=== PATIENT | female | born 1975 | race Caucasian/White ===

== ENCOUNTER 2016-11-02 14:07 | Emergency (ER) | payer BC, OTHER ==
--- NOTE | 2016-11-02 14:40 | UC ---
Complaint Female HPI - HPI Summary HPI Summary: 41 YEAR OLD MALE PRESENTS WITH COMPLAINS OF URINARY FREQUENCY AND URGENCY. - History Of Current Complaint Stated Complaint: URINARY Time Seen by Provider: 11/02/16 14:40 Hx Obtained From: Patient Onset/Duration: Sudden Onset Timing: Constant Severity Initially: Moderate Severity Currently: Moderate Pain Scale Used: 0-10 Numeric - 5 Character: Sharp Aggravating Factor(s): Movement Associated Signs And Symptoms: Positive: Back Pain, Nausea, Vomiting(# Of Episodes =) - Allergies/Home Medications Allergies/Adverse Reactions: Allergies Allergy/AdvReac Type Severity Reaction Status Date / Time No Known Allergies Allergy Verified 11/02/16 14:47 Home Medications: Home Medications Ibuprofen TAB* [Advil TAB*] 800 mg PO Q6H PRN 11/02/16 [History Confirmed ] Review of Systems Constitutional: Negative Skin: Negative Eyes: Negative ENT: Negative Respiratory: Negative Cardiovascular: Negative Genitourinary: Frequency, Urgency Motor: Negative Neurovascular: Negative Musculoskeletal: Negative Neurological: Negative Psychological: Negative All Other Systems Reviewed And Are Negative: Yes Physical Exam Triage Information Reviewed: Yes Eye Exam: Normal ENT Exam: Normal Dental Exam: Normal Neck exam: Normal Neck: Positive: 1 Respiratory Exam: Normal Cardiovascular Exam: Normal Abdominal Exam: Normal Musculoskeletal Exam: Normal Neurological Exam: Normal Psychological Exam: Normal Skin Exam: Normal Complaint Female Dx - Differential Dx/Diagnosis Provider Diagnoses: URINARY FREQUENCY. URINARY URGENCY Discharge - Discharge Plan Condition: Stable Disposition: HOME Prescriptions: Nitrofurantoin Monohyd Macro [Macrobid] 100 mg PO BID #14 cap Patient Education Materials: Urinary Tract Infection in Women (ED) Referrals: Ryley Del Valle MD [Primary Care Provider] -
[2016-11-02 14:47] VITALS: BP 124/76
== END 2016-11-02 15:16 | disposition home or self-care (01) ==
LOC: UCCORT 14:07
DX: R35.0 Frequency of micturition (principal); R39.15 Urgency of urination; Z32.02 Encounter for pregnancy test, result negative
CPT/HCPCS: 81003; 84702; 87077; 87086; 87186; 99202; G0463

== ENCOUNTER 2017-02-02 14:08 | Emergency (ER) | payer OTHER ==
--- NOTE | 2017-02-02 15:09 | UC ---
Skin Complaint HPI - HPI Summary HPI Summary: Pt presents with multiple concerns. 1) Left ear pain. She has a history of cerumen impaction and thinks this may be the cause. Pain started 2 days ago and feels tender around her TMJ as well. No decreased hearing or tinnitus. 2) Tick on left side. first noticed early this morning. Is unsure how long it has been attached. A family member tried to remove the tick from the skin, but a leg remained stuck within. Denies fever, chills, ST, cough, SOB, chest pain, abdominal pain, N/V/D/C - History of Current Complaint Time Seen by Provider: 02/02/17 15:09 Stated Complaint: TICK,LEFT EAR COMPLAINT Hx Obtained From: Patient Hx Last Menstrual Period: ~ 1 WK AGO Skin Exposure Onset/Duration: Minutes Ago Timing: Constant - Allergy/Home Medications Allergies/Adverse Reactions: Allergies Allergy/AdvReac Type Severity Reaction Status Date / Time No Known Allergies Allergy Verified 02/02/17 15:04 Home Medications: Home Medications Buprenorphine/Naloxone SL TAB* [Suboxone 8-2 mg SL TAB*] 1 tab.sl SL BID [History Confirmed 02/02/17] Copper (Iud) [Paragard Intrauterine Cable Driller] 02/02/17 [History] Review of Systems Constitutional: Negative Skin: Other - Tick bite left side ribs Eyes: Negative ENT: Ear Ache Respiratory: Negative Cardiovascular: Negative Gastrointestinal: Negative Neurovascular: Negative Musculoskeletal: Negative Neurological: Negative Psychological: Negative All Other Systems Reviewed And Are Negative: Yes PMH/Surg Hx/FS Hx/Imm Hx Previously Healthy: Yes - Surgical History Surgical History: Yes Surgery Procedure, Year, and Place: C-SECT. LEEP PROCEED-2014 - Social History Alcohol Use: Occasionally Substance Use Type: None Smoking Status (MU): Current Every Day Smoker Type: Cigarettes Amount Used/How Often: 1/2 PPD Length of Time of Smoking/Using Tobacco: ON AND OFF FOR 20 YRS. Have You Smoked in the Last Year: Yes Cessation Counseling: Counseled 3+Min - 10 Min Physical Exam Triage Information Reviewed: Yes Appearance: Well-Appearing, Well-Nourished Vital Signs Reviewed: Yes Eyes: Positive: Conjunctiva Clear. Negative: Conjunctiva Inflamed, Discharge ENT: Positive: Hearing grossly normal, Pharynx normal, Uvula midline, Other - Left TM occluded by mildly yellow discharge. Ear canal is erythe. Negative: Pharyngeal erythema, Nasal congestion - Left TM occluded by mildly yellow discharge. Ear canal is erythematous., Nasal drainage, TM bulging, TM dull, TM red, Tonsillar swelling, Tonsillar exudate, Sinus tenderness Neck: Positive: Supple, Nontender, No Lymphadenopathy Respiratory: Positive: Chest non-tender, Lungs clear, Normal breath sounds, No respiratory distress, No accessory muscle use Cardiovascular: Positive: RRR, No Murmur, Pulses Normal Neurological: Positive: Alert, Muscle Tone Normal Psychological: Positive: Age Appropriate Behavior Skin: Positive: Other - There is approx 4mm diameter area of erythema with central black dot on the left midaxillary line. Consistent with recent tick bite. Appears to still have a leg of the tick embedded within the skin. There is no discharge, edema, or streaking. Course/Dx - Course Course Of Treatment: Left otitis externa - Ciprofloxacin otic. Tick bite left side - unsure how long it had been attached. Elected for doxy 200mg today. - Differential Diagnoses - Skin Complaint Differential Diagnoses: Foreign Body, Local Allergic Reaction, Tick Born Illness - Diagnoses Provider Diagnoses: Tick bite left side. Otitis externa Discharge - Discharge Plan Condition: Stable Disposition: HOME Prescriptions: Ciprofloxacin HCl (Otic) [Ciprofloxacin 0.2% EAR DROPS] 0.25 ml LEFT EAR BID #1 bottle Ibuprofen [Ibuprofen 200 MG] 800 mg PO Q6HR PRN #90 cap PRN Reason: Pain Patient Education Materials: Lyme Disease (ED), Otitis Externa (ED), Tick Bite (ED) Referrals: Ryley Del Valle MD [Primary Care Provider] - Additional Instructions: If you develop a fever, SOB, chest pain, new or worsening symptoms - please call your PCP or go to the ED. Monitor for signs and symptoms of lyme disease, such as a bulls eye rash, headache, neck pain, fatigue, joint pain or swelling.
[2017-02-02 15:14] VITALS: BP 128/80
[2017-02-02] MEDS ORDERED: DOXYcycline CAP(*) 100 MG PO ONE (15:31)
== END 2017-02-02 15:42 | disposition home or self-care (01) ==
LOC: UCCORT 14:08
DX: S20.372A Other superficial bite of left front wall of thorax, initial encounter (principal); W57.XXXA Bitten or stung by nonvenomous insect and other nonvenomous arthropods, initial encounter; Y92.9 Unspecified place or not applicable; H60.92 Unspecified otitis externa, left ear; F17.210 Nicotine dependence, cigarettes, uncomplicated
CPT/HCPCS: 99212; A9270-GY; G0463

== ENCOUNTER 2018-02-15 15:00 | Emergency (ER) | payer OTHER ==
[2018-02-15 15:21] VITALS: BP 114/81
--- NOTE | 2018-02-15 15:44 | ED ---
GI/ HPI - HPI Summary HPI Summary: 42 yr old female with the complaint of Nausea, vomiting, and diarrhea. Onset of symptoms last night with diarrhea, and she has since vomited four times since this morning. She still has nausea. She reports that her stomach remains upset. Her daughter is here with her and has been ill with NVD as well. The patient denies fever, chills. She is asking for Zofran and a work note. She denies urinary symptoms. Prior surgery includes a c section. - History of Current Complaint Chief Complaint: UCGI Time Seen by Provider: 02/15/18 15:32 Stated Complaint: NAUSEA,VOMITING Hx Last Menstrual Period: 01/30/18 Pain Intensity: 0 - Allergy/Home Medications Allergies/Adverse Reactions: Allergies Allergy/AdvReac Type Severity Reaction Status Date / Time No Known Allergies Allergy Verified 02/15/18 15:21 PMH/Surg Hx/FS Hx/Imm Hx - Surgical History Surgery Procedure, Year, and Place: C-SECT. LEE PROCEED-2014 Infectious Disease History: No Infectious Disease History: Denies: Traveled Outside the [place] in Last 30 Days - Family History Known Family History: Positive: Other - gastroenteritis - Social History Occupation: Employed Full-time Alcohol Use: Occasionally Substance Use Type: Reports: None Substance Use Comment - Amount & Last Used: SUBOXONE FOR PRESCRIPTION PAIN MED ADDICTION Smoking Status (MU): Current Every Day Smoker Type: Cigarettes Amount Used/How Often: 1/2 PPD Length of Time of Smoking/Using Tobacco: ON AND OFF FOR 20 YRS. Have You Smoked in the Last Year: Yes Review of Systems Constitutional: Negative Positive: Vomiting, Diarrhea, Nausea All Other Systems Reviewed And Are Negative: Yes Physical Exam Triage Information Reviewed: Yes Vital Signs On Initial Exam: Initial Vitals Temp Pulse Resp BP Pulse Ox 99.0 F 77 18 114/81 99 02/15/18 15:18 02/15/18 15:18 02/15/18 15:18 02/15/18 15:18 02/15/18 15:18 Vital Signs Reviewed: Yes Appearance: Positive: Well-Appearing, No Pain Distress Skin: Positive: Warm, Skin Color Reflects Adequate Perfusion Head/Face: Positive: Normal Head/Face Inspection Eyes: Positive: EOMI, MARISELA ENT: Positive: Pharynx normal, TMs normal Neck: Positive: Nontender Respiratory/Lung Sounds: Positive: Clear to Auscultation, Breath Sounds Present Cardiovascular: Positive: RRR. Negative: Murmur Abdomen Description: Positive: Nontender, Soft. Negative: Distended Musculoskeletal: Positive: Strength/ROM Intact Neurological: Positive: Sensory/Motor Intact, Alert, Oriented to Person Place, Time, CN Intact II-III Psychiatric: Positive: Normal - Saul Coma Scale Best Eye Response: 4 - Spontaneous Best Motor Response: 6 - Obeys Commands Best Verbal Response: 5 - Oriented Coma Scale Total: 15 Diagnostics - Vital Signs Vital Signs Temp Pulse Resp BP Pulse Ox 02/15/18 15:18 99.0 F 77 18 114/81 99 - Laboratory Lab Statement: Any lab studies that have been ordered have been reviewed, and results considered in the medical decision making process. GIGU Course/Dx - Course Course Of Treatment: 42 yr old with gastroenteritis. She is requesting a note to be off until 02/19 - Diagnoses Provider Diagnoses: Gastroenteritis Discharge - Sign-Out/Discharge Documenting (check all that apply): Patient Departure All imaging exams completed and their final reports reviewed: No Studies - Discharge Plan Condition: Good Disposition: HOME Prescriptions: Ondansetron ODT TAB* [Zofran 4 MG Odt TAB*] 4 mg PO Q8H PRN #10 tab.odt PRN Reason: Nausea Patient Education Materials: Gastroenteritis (ED) Forms: *Work Release Referrals: Ryley Del Valle MD [Primary Care Provider] - 2 Days - Billing Disposition and Condition Condition: GOOD Disposition: Home
== END 2018-02-15 16:06 | disposition home or self-care (01) ==
LOC: UCCORT 15:00
DX: K52.9 Noninfective gastroenteritis and colitis, unspecified (principal); F17.210 Nicotine dependence, cigarettes, uncomplicated
CPT/HCPCS: 81003; 84702; 99212; G0463

== ENCOUNTER 2018-03-20 14:12 | Emergency (ER) | payer OTHER ==
[2018-03-20 14:42] VITALS: BP 133/81
--- NOTE | 2018-03-20 15:42 | UC ---
UC General HPI - HPI Summary HPI Summary: Patient has been vomiting for the past few days, Has been using her zofran which has helped her tolerated food and drink. She is required to have a note to return to work. - History of Current Complaint Chief Complaint: UCGI Stated Complaint: VOMITING WEAK SHAKY DIARRHEA Time Seen by Provider: 03/20/18 15:24 Hx Obtained From: Patient Hx Last Menstrual Period: 01/30/18 Onset/Duration: Sudden Onset, Lasting Days Timing: Constant Onset Severity: Severe Current Severity: Mild Pain Intensity: 5 Associated Signs & Symptoms: Positive: Nausea, Vomiting - Allergy/Home Medications Allergies/Adverse Reactions: Allergies Allergy/AdvReac Type Severity Reaction Status Date / Time No Known Allergies Allergy Verified 03/20/18 14:42 Home Medications: Home Medications Acetaminophen [Tylenol Extra Strength] 500 mg PO DAILY 03/20/18 [History Confirmed 03/20/18] PMH/Surg Hx/FS Hx/Imm Hx Previously Healthy: Yes - Surgical History Surgical History: Yes Surgery Procedure, Year, and Place: C-SECT. LEEP PROCEED-2014 - Family History Known Family History: Positive: Other - gastroenteritis - Social History Alcohol Use: Occasionally Substance Use Type: None Substance Use Comment - Amount & Last Used: SUBOXONE FOR PRESCRIPTION PAIN MED ADDICTION Smoking Status (MU): Current Every Day Smoker Type: Cigarettes Amount Used/How Often: 1/2 PPD Length of Time of Smoking/Using Tobacco: ON AND OFF FOR 20 YRS. Have You Smoked in the Last Year: Yes Household Exposure Type: Cigarettes Review of Systems All Other Systems Reviewed And Are Negative: Yes Constitutional: Positive: Negative Skin: Positive: Negative Eyes: Positive: Negative ENT: Positive: Negative Respiratory: Positive: Negative Cardiovascular: Positive: Negative Gastrointestinal: Positive: Vomiting, Nausea Genitourinary: Positive: Negative Motor: Positive: Negative Neurovascular: Positive: Negative Musculoskeletal: Positive: Negative Neurological: Positive: Negative Psychological: Positive: Negative Is Patient Immunocompromised?: No Physical Exam Triage Information Reviewed: Yes Appearance: Well-Appearing, Well-Nourished, Pain Distress Vital Signs: Initial Vital Signs Temp 98.6 F 03/20/18 14:37 Pulse 73 03/20/18 14:37 Resp 16 03/20/18 14:37 BP 133/81 03/20/18 14:37 Pulse Ox 100 03/20/18 14:37 Vital Signs Reviewed: Yes Eye Exam: Normal ENT Exam: Normal Dental Exam: Normal Neck exam: Normal Neck: Positive: Supple, Nontender, No Lymphadenopathy Respiratory Exam: Normal Respiratory: Positive: Chest non-tender, Lungs clear, Normal breath sounds Cardiovascular Exam: Normal Cardiovascular: Positive: RRR, No Murmur, Pulses Normal Abdominal Exam: Normal Abdomen Description: Positive: Nontender, No Organomegaly, Soft Bowel Sounds: Positive: Present Musculoskeletal Exam: Normal Neurological Exam: Normal Psychological Exam: Normal Skin Exam: Normal Course/Dx - Course Course Of Treatment: hx obtained, exam performed, meds reveiwed, patient is improving. work note given - Diagnoses Provider Diagnosis: Nausea & vomiting Discharge - Sign-Out/Discharge Documenting (check all that apply): Patient Departure All imaging exams completed and their final reports reviewed: No Studies - Discharge Plan Condition: Stable Disposition: HOME Patient Education Materials: Acute Nausea and Vomiting (ED) Forms: *Work Release Referrals: Shelby Kimball EYEGLASS FRAMES INSPECTOR [Primary Care Provider] - Additional Instructions: 1. Continue to use the Zofran and eat and drink as tolerated - Billing Disposition and Condition Condition: STABLE Disposition: Home - Attestation Statements Provider Attestation: I was available for consult. This patient was seen by the ASHVIN. The patient was not presented to, seen by, or examined by me. EK
== END 2018-03-20 15:43 | disposition home or self-care (01) ==
LOC: UCCORT 14:12
DX: R11.2 Nausea with vomiting, unspecified (principal); F17.210 Nicotine dependence, cigarettes, uncomplicated
CPT/HCPCS: 99211; G0463

== ENCOUNTER 2018-06-18 17:55 | Emergency (ER) | payer OTHER ==
[2018-06-18 18:45] VITALS: BP 136/81
--- NOTE | 2018-06-18 19:06 | UC ---
General HPI - HPI Summary HPI Summary: pt is c/o nausea with vomiting after taking her Suboxone around 4am yesterday. she has had some recurrent n/v'ing since then that "comes in cycles". she has had no diarrhea. she denies any hx of IBD. she has had similar s/s's a few times in the past as well. it prevents her from taking her medications. pt is also c/o some L lower abdominal pain since yesterday am. she describes it as sharp. she has a hx of ovarian cysts and wonders if it is the same. - History of Current Complaint Chief Complaint: UCGI Stated Complaint: VOMITTING,LT LOWER ABD PAIN Time Seen by Provider: 06/18/18 18:57 Hx Obtained From: Patient Hx Last Menstrual Period: 06/03/18 Pain Intensity: 7 Associated Signs & Symptoms: Positive: Abdominal Pain, Nausea, Vomiting. Negative: Diarrhea, Fever - Allergy/Home Medications Allergies/Adverse Reactions: Allergies Allergy/AdvReac Type Severity Reaction Status Date / Time No Known Allergies Allergy Verified 06/18/18 18:24 Home Medications: Home Medications Cyanocobalamin (Vitamin B-12) [Vitamin B-12] 5,000 mcg PO 06/18/18 [History] Magnesium Oxide [Magnesium] 250 mg PO 06/18/18 [History] Multivitamin [Multivitamins] 1 cap PO DAILY 06/18/18 [History Confirmed 06/18/18 ] Pyridoxine TAB* [Vitamin B6 TAB*] 100 mg PO DAILY 06/18/18 [History Confirmed ] Vitamin A Palmitate [Vitamin A] 20,000 unit PO 06/18/18 [History] Zinc 50 mg PO DAILY 06/18/18 [History Confirmed 06/18/18] busPIRone TAB* [Buspar TAB*] 10 mg PO PRN 06/18/18 [History] PMH/Surg Hx/FS Hx/Imm Hx - Additional Past Medical History Additional PMH: 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 ovarian cyst. recurrent n/v. - Surgical History Surgical History: Yes Surgery Procedure, Year, and Place: C-SECT. LEEP PROCEED-2014 - Family History Known Family History: Positive: Other - gastroenteritis - Social History Alcohol Use: Occasionally Substance Use Type: None Substance Use Comment - Amount & Last Used: SUBOXONE FOR PRESCRIPTION PAIN MED ADDICTION Smoking Status (MU): Current Every Day Smoker Type: Cigarettes Amount Used/How Often: 1/2 PPD Length of Time of Smoking/Using Tobacco: ON AND OFF FOR 20 YRS. Have You Smoked in the Last Year: Yes Household Exposure Type: Cigarettes Review of Systems All Other Systems Reviewed And Are Negative: Yes Constitutional: Positive: Other - lightheaded Gastrointestinal: Positive: Abdominal Pain, Vomiting, Nausea. Negative: Diarrhea Genitourinary: Negative: Dysuria, Hematuria, Frequency, Urgency, Vaginal/Penile Discharge, Abnormal Bleeding Motor: Positive: Weakness Physical Exam Triage Information Reviewed: Yes Appearance: Well-Appearing Vital Signs: Initial Vital Signs Temp 98.5 F 06/18/18 18:33 Pulse 101 06/18/18 18:33 Resp 18 06/18/18 18:33 BP 136/81 06/18/18 18:33 Pulse Ox 98 06/18/18 18:33 Vital Signs Reviewed: Yes Eyes: Positive: Conjunctiva Clear ENT: Positive: Pharynx normal, TMs normal, Other - mouth is moist. Negative: Nasal congestion, Nasal drainage Neck: Positive: Supple, Nontender, No Lymphadenopathy Respiratory: Positive: Lungs clear, Normal breath sounds, No respiratory distress Cardiovascular: Positive: RRR - hr=96, No Murmur Abdomen Description: Positive: Other: - +BS, soft, tender in LLQ. no mass, HSM or CVA tenderness. episodic guarding but no rebound tenderness. Musculoskeletal: Positive: ROM Intact Neurological: Positive: Alert Psychological: Positive: Age Appropriate Behavior Skin Exam: Normal Course/Dx - Course Course Of Treatment: pt advised of need for ER transfer to properly evaluate and treat her abdominal pain. she is refusing the transfer. I have advised of risk for worsening, disability and ; however, she still refused to be transferred. She is a&o x3 and able to make decisions thus I must respect her wish to not go to the ER. I will still tx her n/ving because it is in the pt's best interest. DIAGNOSTICS: U/A= SG IS 1.015 AND NO KETONES. The hcg=negative. - Differential Dx - Multi-Symptom Differential Diagnoses: Other - POSSIBLE CYCLICAL VOMITING. OVARIAN PATHOLOGY. BOWEL PATHOLOGY. HCG WAS NEGATIVE AND U/A IS UNREMARKABLE. - Diagnoses Provider Diagnosis: LLQ abdominal pain, Nausea & vomiting, Left against medical advice Discharge - Sign-Out/Discharge Documenting (check all that apply): Patient Departure All imaging exams completed and their final reports reviewed: No Studies - Discharge Plan Condition: Stable Disposition: AGAINST MEDICAL ADVICE Prescriptions: Ondansetron ODT TAB* [Zofran 4 MG Odt TAB*] 4 mg PO Q6H PRN #10 tab.odt PRN Reason: Nausea/Vomiting Patient Education Materials: Acute Nausea and Vomiting (ED), Abdominal Pain (ED ), Against Medical Advice (ED) Forms: *Work Release Referrals: Shelby Kimball NP [Primary Care Provider] - As Soon As Possible - Billing Disposition and Condition Condition: STABLE Disposition: Against Medical Advice
[2018-06-18] MEDS ORDERED: Ondansetron ODT TAB* 4 MG PO ONE (19:16)
== END 2018-06-18 20:25 | disposition left against medical advice (07) ==
LOC: UCCORT 17:55
DX: R11.2 Nausea with vomiting, unspecified (principal); R10.32 Left lower quadrant pain; F17.210 Nicotine dependence, cigarettes, uncomplicated
CPT/HCPCS: 81003; 84702; 99212; A9270-GY; G0463

== ENCOUNTER 2018-10-25 09:34 | Emergency (ER) | payer OTHER ==
[2018-10-25 10:01] VITALS: BP 142/83
--- NOTE | 2018-10-25 10:34 | UC ---
UC General HPI - HPI Summary HPI Summary: 1. SWELLING AROUND R INGROWN TOENAIL X 2 DAYS. TOE BEING TX FOR FUNGAL INFECTION OF NAIL. 2. PASSED A BLOOD CLOT EARLY THIS AM AND ONCE YESTERDAY. STATES BOTH OCCURRED WHILE URINATING SO THINKS IT MAY BE FROM HER URINE. HAS BEEN HAVING SOME SPOTTING AND HAS AN APPOINTMENT WITH HER PCP FOR MINING CAPTAIN EXAM THIS THURSDAY(IN 2 DAYS). NO CURRENT BLEEDING. DID TELL TRIAGE CONSTANT BLEEDING. IT NOT WEARING PAD OR TAMPON BECAUSE NO BLEEDING NOW. PT THINKS THE SPOTTING IS FROM HER WELLBUTRIN. - History of Current Complaint Chief Complaint: UCGU Stated Complaint: PERSONAL Time Seen by Provider: 10/25/18 10:23 Hx Obtained From: Patient Hx Last Menstrual Period: PARAGUARD IUD Pain Intensity: 0 Associated Signs & Symptoms: Negative: Abdominal Pain, Dysuria - Allergy/Home Medications Allergies/Adverse Reactions: Allergies Allergy/AdvReac Type Severity Reaction Status Date / Time No Known Allergies Allergy Verified 10/25/18 09:59 PMH/Surg Hx/FS Hx/Imm Hx - Additional Past Medical History Additional PMH: IN RECOVERY FROM SUBSTANCE ABUSE. Psychological History: Depression - Surgical History Surgical History: Yes Surgery Procedure, Year, and Place: C-SECT. LEEP PROCEED-2014 - Family History Known Family History: Positive: Other - gastroenteritis - Social History Occupation: Employed Full-time Alcohol Use: Occasionally Substance Use Type: None Substance Use Comment - Amount & Last Used: SUBOXONE FOR PRESCRIPTION PAIN MED ADDICTION Smoking Status (MU): Current Every Day Smoker Type: Cigarettes Amount Used/How Often: 1 PPD Length of Time of Smoking/Using Tobacco: ON AND OFF FOR 20 YRS. Have You Smoked in the Last Year: Yes Household Exposure Type: Cigarettes Review of Systems All Other Systems Reviewed And Are Negative: Yes Constitutional: Negative: Fever, Chills, Fatigue Skin: Positive: Rash - R GREAT TOENAIL BED Gastrointestinal: Negative: Abdominal Pain, Vomiting, Diarrhea, Nausea Genitourinary: Positive: Hematuria - ?, Abnormal Bleeding - "SPOTTING". Negative: Dysuria, Frequency Physical Exam Triage Information Reviewed: Yes Appearance: Well-Appearing Vital Signs: Initial Vital Signs Temp 98.4 F 10/25/18 09:53 Pulse 121 10/25/18 09:53 Resp 18 10/25/18 09:53 BP 142/83 10/25/18 09:53 Pulse Ox 96 10/25/18 09:53 Vital Signs Reviewed: Yes Eyes: Positive: Conjunctiva Clear - AND PINK ENT: Positive: Pharynx normal. Negative: Nasal congestion, Nasal drainage Neck: Positive: Supple, Nontender, No Lymphadenopathy Respiratory: Positive: Lungs clear, Normal breath sounds, No respiratory distress Cardiovascular: Positive: RRR - RATE=84, Pulses Normal - STRONG RADIAL PULSE. Negative: Tachycardia Abdomen Description: Positive: Nontender, No Organomegaly, Soft. Negative: Distended, Guarding Bowel Sounds: Positive: Present Pelvic Exam: Positive: Other - OFFERED, PT DECLINED(PCP DOING EXAM IN 2 DAYS). Musculoskeletal: Positive: ROM Intact Neurological: Positive: Alert Psychological: Positive: Age Appropriate Behavior Skin Exam: Normal Skin: Negative: Rashes Course/Dx - Differential Dx - Multi-Symptom Differential Diagnoses: Other - ingrown - infected toenail, will tx keflex and refer to podiatry. Tachycardia at triage but resolved at time of exam. urine hcg=neg and no blood in u/a. pt denies any current spotting and vaginal bleeding at time of exam. pelvic exam offered but pt declined because leather goods sales representative exam scheduled with her pcp in 2 days. - Diagnoses Provider Diagnosis: Spotting between menses, Paronychia due to ingrown nail Discharge - Sign-Out/Discharge Documenting (check all that apply): Patient Departure All imaging exams completed and their final reports reviewed: No Studies - Discharge Plan Condition: Stable Disposition: HOME Prescriptions: Cephalexin CAP* [Keflex CAP*] 500 mg PO TID 7 Days #21 cap Patient Education Materials: Dysfunctional Uterine Bleeding (ED), Paronychia ( ED) Forms: *Work Release Referrals: Shelby Kimball NP [Primary Care Provider] - 2 Days Marion Altamirano DPM [Doctor of Podiatric Medicine] - As Soon As Possible Additional Instructions: FOLLOW UP WITH YOUR PRIMARY CARE SCHEDULED IN 2 DAYS OR SOONER IF WORSE. FOLLOW UP WITH PODIATRY SOON POSSIBLE FOR THE TOENAIL ISSUE/INFECTION. - Billing Disposition and Condition Condition: STABLE Disposition: Home
== END 2018-10-25 10:47 | disposition home or self-care (01) ==
LOC: UCCORT 09:34
DX: N92.0 Excessive and frequent menstruation with regular cycle (principal); L03.031 Cellulitis of right toe; L60.0 Ingrowing nail; F17.210 Nicotine dependence, cigarettes, uncomplicated
CPT/HCPCS: 81003; 84702; 87086; 99212; G0463

== ENCOUNTER 2019-03-13 15:40 | Emergency (ER) | payer SELFPAY ==
[2019-03-13 16:36] VITALS: BP 112/63
--- NOTE | 2019-03-13 16:45 | UC ---
Throat Pain/Nasal [place] HPI - HPI Summary HPI Summary: 43-year-old female smoker who awakened yesterday with a sore throat, fever and chills and congested cough. She did not get a flu shot. - History of Current Complaint Chief Complaint: UCRespiratory Stated Complaint: UPPER RESPIRATORY/SORE THROAT/COUGH Time Seen by Provider: 03/13/19 16:44 Hx Obtained From: Patient Hx Last Menstrual Period: 03/09/19; IUD ?: No Onset/Duration: Gradual Onset Severity: Mild Pain Intensity: 4 Associated Signs & Symptoms: Positive: Nasal Discharge - Allergies/Home Medications Allergies/Adverse Reactions: Allergies Allergy/AdvReac Type Severity Reaction Status Date / Time No Known Allergies Allergy Verified 03/13/19 16:29 Home Medications: Home Medications FLUoxetine CAP* [PROzac CAP*] 40 mg PO BEDTIME 03/13/19 [History Confirmed 03/13] hydrOXYzine HCL TAB* [Atarax 25 MG TAB*] 25 mg PO BEDTIME PRN 03/13/19 [History Confirmed 03/13/19] PMH/Surg Hx/FS Hx/Imm Hx Previously Healthy: Yes - Surgical History Surgical History: Yes Surgery Procedure, Year, and Place: [facility] - Family History Known Family History: Positive: Other - gastroenteritis - Social History Lives: With Family Alcohol Use: Rare Substance Use Type: None Substance Use Comment - Amount & Last Used: SUBOXONE FOR PRESCRIPTION PAIN MED ADDICTION Smoking Status (MU): Current Every Day Smoker Type: Cigarettes Amount Used/How Often: 1 PPD Length of Time of Smoking/Using Tobacco: ON AND OFF FOR 20 YRS. Have You Smoked in the Last Year: Yes Household Exposure Type: Cigarettes Review of Systems All Other Systems Reviewed And Are Negative: Yes Constitutional: Positive: Chills ENT: Positive: Sore Throat, Nasal Discharge, Sinus Congestion Respiratory: Positive: Cough Is Patient Immunocompromised?: No Physical Exam Triage Information Reviewed: Yes Appearance: Well-Appearing, No Pain Distress, Well-Nourished Vital Signs: Initial Vital Signs Temp 98.3 F 03/13/19 16:31 Pulse 80 03/13/19 16:31 Resp 16 03/13/19 16:31 BP 112/63 03/13/19 16:31 Pulse Ox 99 03/13/19 16:31 Vital Signs Reviewed: Yes Eyes: Positive: Conjunctiva Clear ENT: Positive: Pharyngeal erythema, TMs normal, Tonsillar swelling, Uvula midline. Negative: Tonsillar exudate, Trismus, Muffled voice Neck: Positive: Supple, Nontender, Enlarged Nodes @ - Very Mild bilateral tonsillar lymph node enlargement. Respiratory: Positive: Lungs clear, Normal breath sounds, No respiratory distress, No accessory muscle use Cardiovascular: Positive: RRR, No Murmur, Pulses Normal, Brisk Capillary Refill Musculoskeletal Exam: Normal Neurological Exam: Normal Psychological Exam: Normal Skin Exam: Normal Throat Pain/Nasal Course/Dx - Course Course Of Treatment: Rapid strep test:negative DuoNeb treatment: Patient states that she feels better since having the nebulizer treatment and feels like she is getting more air. Chest:2 views of the chest including dual energy PA views demonstrate no mediastinal shift. Heart is of normal size and configuration. Lung guzman are clear. IMPRESSION: No active cardiopulmonary disease is noted. The patient is being sent home with an albuterol inhaler and an AeroChamber and the nurses reviewed how to use it correctly. She was given 40 mg of prednisone here in the emergency room. She felt much better following the DuoNeb treatment. - Differential Dx/Diagnosis Provider Diagnosis: Bronchitis Discharge ED - Sign-Out/Discharge Documenting (check all that apply): Patient Departure All imaging exams completed and their final reports reviewed: Yes - Discharge Plan Condition: Fair Disposition: HOME Prescriptions: predniSONE 10 mg TAB [Deltasone 10 MG TAB*] 10 mg PO DAILY 11 Days #26 tab Patient Education Materials: Acute Bronchitis (ED) Forms: *Work Release Referrals: Shelby Kimball NP [Primary Care Provider] - Additional Instructions: Use your albuterol inhaler 2 puffs every 4 hours as needed for wheezing or tight cough. Take the prednisone with food. Definite follow-up with your primary care provider in 2 or 3 days if no improvement. - Billing Disposition and Condition Condition: FAIR Disposition: Home
[2019-03-13] MEDS ORDERED: Albuterol/Ipratropium NEB.SOL* Albuterol 2.5 MG/Ipratropium 0.5 MG 3 ML INH ONE (16:54)
[2019-03-13] MEDS ORDERED: Albuterol HFA INHALER* 8 gm MDI INH ONE (17:36)
== END 2019-03-13 17:53 | disposition home or self-care (01) ==
LOC: UCCORT 15:40
DX: J40 Bronchitis, not specified as acute or chronic (principal); J02.9 Acute pharyngitis, unspecified; R09.81 Nasal congestion; F17.210 Nicotine dependence, cigarettes, uncomplicated
CPT/HCPCS: 71046; 87651; 99213; A9270-GY; G0463; J7512